=== PATIENT | female | born 1990 | race Caucasian/White ===

== ENCOUNTER 2019-02-18 05:20 | Inpatient (IN) | payer MEDICAID ==
[2019-02-18] MEDS ORDERED: OXYTOCIN 30 UNITS/LR 500 ML IV (06:00)
[2019-02-18] MEDS ORDERED: METHYLERGONOVINE 0.2 MG INJ IM (06:00)
[2019-02-18] MEDS ORDERED: CARBOPROST 250 MCG INJ IM (06:00)
[2019-02-18] MEDS ORDERED: MISOPROSTOL 200 MCG TAB PR ×2 (06:00→08:00)
[2019-02-18 06:58] LABS: ADD MAN DIFF? NO
[2019-02-18 07:05] LABS: ABNORMAL IP MESSAGE 1; BASOPHILS % 0.4 % (0.0-2.0); EOSINOPHILS # 0.1 10^3/ul (0.0-0.5); HEMATOCRIT 39.2 % (37.0-47.0); HEMOGLOBIN 13.4 g/dl (12.0-16.0); LYMPHOCYTES # 1.3 10^3/ul (0.8-2.9); LYMPHOCYTES % 16.6 % (15.0-51.0); MEAN CORPUSCULAR HEMOGLOBIN 32.7 pg (29.0-33.0); MEAN CORPUSCULAR HGB CONC 34.2 g/dl (32.0-37.0); MEAN CORPUSCULAR VOLUME 95.6 fl (82.0-101.0); MEAN PLATELET VOLUME 10.7 fl (7.4-10.4); MONOCYTE # 0.6 10^3/ul (0.3-0.9); NEUTROPHIL # 5.9 10^3/ul (1.6-7.5); NEUTROPHILS % 74.5 % (39.0-77.0); PLATELET COUNT 93 10^3/UL (140-415); RED CELL DISTRIBUTION WIDTH 12.8 % (11.5-14.5)
[2019-02-18 07:20] LABS: POSITIVE DIFF @See below
[2019-02-18 07:21] LABS: INR 0.95; PROTIME 12.8 Sec (11.9-14.9)
[2019-02-18 07:22] LABS: PARTIAL THROMBOPLASTIN TIME 25.3 Sec (23.0-35.0)
[2019-02-18] MEDS ORDERED: FENTAnyl 50 MCG/ML VIAL (07:41)
[2019-02-18] MEDS ORDERED: morphine SULFATE/PF (10 MG/10 ML) INJ (07:41)
[2019-02-18] MEDS ORDERED: DEXAMETHASONE 4 MG/ML 1 ML INJ (07:48)
[2019-02-18] MEDS ORDERED: PHENYLephrine (100 MCG/ML) 10ML SYG (07:48)
[2019-02-18] MEDS ORDERED: ONDANSETRON 4 MG INJ (07:48)
[2019-02-18 07:56] LABS: HEPATITIS B SURFACE ANTIGEN NEGATIVE (NEGATIVE)
[2019-02-18] MEDS ORDERED: OXYCODONE/ACETAMINOPHEN (5/325) TAB PO (08:00)
[2019-02-18] MEDS ORDERED: NA PHOSPHATE/BIPHOS 133 ML ENEMA PR (08:00)
[2019-02-18] MEDS ORDERED: ZOLPIDEM 5 MG TAB PO (09:00)
[2019-02-18] MEDS ORDERED: ONDANSETRON 4 MG INJ IV (09:00)
[2019-02-18] MEDS ORDERED: NALOXONE (0.4 MG/ML) INJ IV (09:00)
[2019-02-18] MEDS ORDERED: HYDROmorphONE 0.5 MG/0.5 ML SYG IV (09:00)
[2019-02-18] MEDS: SENNA/DOCUSATE NA (8.6MG/50MG) TAB PO ×2 (09:00→20:49)
[2019-02-18] MEDS: CEFAZOLIN 2 GM/50 ML (PMX) 50 ML IVPB (09:43)
[2019-02-18] MEDS: OXYTOCIN 30 UNITS/LR 500 ML IV (10:09)
[2019-02-18] MEDS: KETOROLAC 30 MG INJ IV ×2 (11:12→17:22)
[2019-02-18] MEDS: HYDROmorphONE 0.5 MG/0.5 ML SYG IV (11:12)
[2019-02-18] MEDS: IBUPROFEN 600 MG TAB PO ×2 (12:00→18:00)
[2019-02-18] MEDS: DIPHENHYDRAMINE 50 MG INJ IV (13:18)
[2019-02-18 16:22] LABS: RAPID PLASMA REAGIN NONREACTIVE (NR)
[2019-02-18] MEDS: LACTATED RINGER'S 1,000 ML IV ×3 (17:21→21:33)
[2019-02-18] MEDS: PHENYTOIN 100 MG CAP PO (20:49)
[2019-02-19] MEDS: LANOLIN HPA 1 PKT TOP (00:34)
[2019-02-19] MEDS: LACTATED RINGER'S 1,000 ML IV (02:01)
[2019-02-19] MEDS: KETOROLAC 30 MG INJ IV (04:39)
[2019-02-19] MEDS: IBUPROFEN 600 MG TAB PO ×4 (06:00→17:55)
[2019-02-19 08:41] LABS: ADD MAN DIFF? NO
[2019-02-19 08:45] LABS: ABNORMAL IP MESSAGE 1; BASOPHILS % 0.1 % (0.0-2.0); EOSINOPHILS # 0.1 10^3/ul (0.0-0.5); EOSINOPHILS % 0.9 % (0.0-7.0); HEMATOCRIT 27.9 % (37.0-47.0); HEMOGLOBIN 9.3 g/dl (12.0-16.0); LYMPHOCYTES # 1.1 10^3/ul (0.8-2.9); LYMPHOCYTES % 14.4 % (15.0-51.0); MEAN CORPUSCULAR HEMOGLOBIN 32.5 pg (29.0-33.0); MEAN CORPUSCULAR HGB CONC 33.3 g/dl (32.0-37.0); MEAN CORPUSCULAR VOLUME 97.6 fl (82.0-101.0); MEAN PLATELET VOLUME 11.2 fl (7.4-10.4); MONOCYTE # 0.8 10^3/ul (0.3-0.9); MONOCYTES % 10.2 % (0.0-11.0); NEUTROPHIL # 5.7 10^3/ul (1.6-7.5); RED BLOOD COUNT 2.86 10^6/ul (4.20-5.40); RED CELL DISTRIBUTION WIDTH 12.7 % (11.5-14.5)
[2019-02-19 08:45] LABS: WHITE BLOOD COUNT 7.6 10^3/ul (4.8-10.8)
[2019-02-19 09:03] LABS: POSITIVE DIFF @See below
[2019-02-19 09:04] LABS: PLATELET COUNT 98 10^3/UL (140-415)
[2019-02-19] MEDS: SENNA/DOCUSATE NA (8.6MG/50MG) TAB PO ×2 (10:53→20:26)
[2019-02-19] MEDS: OXYCODONE/ACETAMINOPHEN (5/325) TAB PO ×2 (11:30→17:55)
[2019-02-19] MEDS: PHENYTOIN 100 MG CAP PO (20:26)
[2019-02-20] MEDS: IBUPROFEN 600 MG TAB PO ×3 (00:07→12:22)
[2019-02-20] MEDS: SENNA/DOCUSATE NA (8.6MG/50MG) TAB PO (09:14)
[2019-02-21] MEDS ORDERED: DIPHTH/TET/ACEL PERTUSS (ADULT) 0.5 ML VIAL IM* (09:00)
[2019-02-21] MEDS ORDERED: MEASLES,MUMPS,RUBELLA VACCINE INJ SC* (09:00)
== END 2019-02-20 14:17 | disposition home or self-care (01) | DRG 784 ==
LOC: L-D 05:20 → PP1 11:33
PROVIDERS: Specialist
PROC: 10D00Z1 Extraction of Products of Conception, Low, Open Approach (ICD-10-PCS; principal; 2019-02-18 07:30)
PROC: 0UB70ZZ Excision of Bilateral Fallopian Tubes, Open Approach (ICD-10-PCS; 2019-02-18 07:30)
DX: O34.219 Maternal care for unspecified type scar from previous cesarean delivery (principal); O99.354 Diseases of the nervous system complicating childbirth; G40.909 Epilepsy, unspecified, not intractable, without status epilepticus; Z3A.38 38 weeks gestation of pregnancy; Z37.0 Single live birth; Z30.2 Encounter for sterilization
CPT/HCPCS: 85025; 85610; 85730; 86592; 86850; 86900; 86901; 87340; 99464